=== PATIENT | female | born 1990 | race Caucasian/White ===

== ENCOUNTER 2016-10-24 08:40 | Emergency (ER) | payer MEDICAID ==
--- NOTE | 2016-10-24 09:22 | ER Document Report ---
ED Fall - General Chief Complaint: Fall Stated Complaint: FALL, FACIAL PAIN Time Seen by Provider: 10/24/16 09:13 Notes: The patient is a 26-year-old female who presents with left jaw pain and right sided headache after she said that she fell down 10 stairs last night and had 30 seconds of LOC. Patient says that she feels safe at home and that she is not being abused. She denies numbness, tingling, blurry vision, malocclusion, loose teeth, TRAVEL OUTSIDE OF THE [place] IN LAST 30 DAYS: No - Related data Allergies/Adverse Reactions: iodine [Iodine] Allergy (Verified 10/24/16 08:45) Past Medical History - General Information source: Patient - Social History Smoking Status: Current Every Day Smoker Frequency of alcohol use: Occasional Drug Abuse: Marijuana Family History: Reviewed & Not Pertinent Patient has suicidal ideation: No Patient has homicidal ideation: No Pulmonary Medical History: Reports: Hx Asthma Renal/ Medical History: Denies: Hx Peritoneal Dialysis GI Medical History: Reports: Hx Irritable Bowel Past Surgical History: Reports: Hx Cholecystectomy - Immunizations Hx Diphtheria, Pertussis, Tetanus Vaccination: Yes Review of Systems - Review of Systems Notes: REVIEW OF SYSTEMS: CONSTITUTIONAL: -fevers, -chills EENT: -eye pain, -difficulty swallowing, -nasal congestion, +left jaw pain CARDIOVASCULAR:-chest pain, -syncope. RESPIRATORY: -cough, -SOB GASTROINTESTINAL: -abdominal pain, - nausea, -vomiting, -diarrhea GENITOURINARY: -dysuria, -hematuria MUSCULOSKELETAL: -back pain, -neck pain SKIN: -rash or skin lesions. HEMATOLOGIC: -easy bruising or bleeding. LYMPHATIC: -swollen, enlarged glands. NEUROLOGICAL: -altered mental status or loss of consciousness, +headache, - neurologic symptoms PSYCHIATRIC: -anxiety, -depression. ALL OTHER SYSTEMS REVIEWED AND NEGATIVE. Physical Exam - Vital signs Vitals: Temp Pulse Resp BP Pulse Ox 98.4 F 84 18 118/55 L 99 10/24/16 08:41 10/24/16 08:41 10/24/16 08:41 10/24/16 08:41 10/24/16 08:41 - Notes Notes: PHYSICAL EXAMINATION: GENERAL: Well-appearing, well-nourished and in no acute distress. HEAD: Contusion over right parietal region. EYES: Pupils equal round and reactive to light, extraocular movements intact, sclera anicteric, conjunctiva are normal. ENT: nares patent, oropharynx clear without exudates. Moist mucous membranes. No malocclusion or dental injuries. NECK: Normal range of motion, supple without lymphadenopathy LUNGS: Breath sounds clear to auscultation bilaterally and equal. No wheezes rales or rhonchi. HEART: Regular rate and rhythm without murmurs ABDOMEN: Soft, nontender, normoactive bowel sounds. No guarding, no rebound. No masses appreciated. EXTREMITIES: Normal range of motion, no pitting or edema. No cyanosis. NEUROLOGICAL: Cranial nerves grossly intact. Normal speech, normal gait. Normal sensory and motor exams. PSYCH: Normal mood, normal affect. SKIN: Ecchymosis over left jaw. Course - Re-evaluation Re-evalutation: Asked patient multiple times if she felt safe at home and whether she was being abused, but she repeatedly denies this. Patient's head and facial CT do not show any bleeds or fractures. Instructed patient about contusion management with anti-inflammatories and ice packs and she understands. Given return precautions. - Vital Signs Vital signs: Temp Pulse Resp BP Pulse Ox 98.4 F 84 18 118/55 L 99 10/24/16 08:41 10/24/16 08:41 10/24/16 08:41 10/24/16 08:41 10/24/16 08:41 - Diagnostic Test Radiology reviewed: Image reviewed, Reports reviewed Radiology results interpreted by me: Head and facial CT: NAD Discharge - Discharge Clinical Impression: Facial contusion Qualifiers: Encounter type: initial encounter Qualified Code(s): S00.83XA - Contusion of other part of head, initial encounter Contusion of head Qualifiers: Encounter type: initial encounter Contusion of head detail: scalp Qualified Code(s): S00.03XA - Contusion of scalp, initial encounter Condition: Stable Disposition: HOME, SELF-CARE Additional Instructions: Take Tylenol and Motrin with ice packs for any pain. Contusion Your injury has resulted in a contusion -- a crushing of the deep tissues. No injury to important structures was detected during the physician's exam. Contusions vary in the amount of pain they cause, and in the length of time required for healing. Typically, the area will become bruised, and will remain painful to touch for two or three weeks. However, most patients are back to working and playing within a few days. After the initial period of rest and cold-packs, your symptoms (together with the doctor's recommendations) will determine how rapidly you can get back to full activity. Usually this means "do what feels okay, but don't do things that hurt." If re-examination was recommended, it's important to follow up as instructed. Call the doctor or return any time if pain increases, if swelling becomes severe, if you develop numbness or weakness in an injured extremity, or if any other alarming symptoms occur.
--- NOTE | 2016-10-24 10:00 | RADIOLOGY REPORT (SQ) ---
EXAM DESCRIPTION: CT HEAD WITHOUT COMPLETED DATE/TIME: 10/24/2016 9:39 am REASON FOR STUDY: fall COMPARISON: None. TECHNIQUE: Axial images acquired through the brain without intravenous contrast. Images reviewed wi th bone, brain and subdural windows. Images stored on PACS. All CT scanners at this facility use dose modulation, iterative reconstruction, and/or weight based d osing when appropriate to reduce radiation dose to as low as reasonably achievable (ALARA). [facility]: Dose Right [facility]: CareDose [facility]: Dose Right [facility]: Teradose 4D [facility]: [employer] RADIATION DOSE: Up-to-date CT equipment and radiation dose reduction techniques were employed. CTDIv ol: 64.6 mGy. DLP: 1034 mGy-cm. mGy. LIMITATIONS: None. FINDINGS: VENTRICLES: Normal size and contour. CEREBRUM: No masses. No hemorrhage. No midline shift. No evidence for acute infarction. Normal gra y/white matter differentiation. No areas of low density in the white matter. CEREBELLUM: No masses. No hemorrhage. No alteration of density. No evidence for acute infarction. EXTRAAXIAL SPACES: No fluid collections. No masses. ORBITS AND GLOBE: No intra- or extraconal masses. Normal contour of globe without masses. CALVARIUM: No fracture. PARANASAL SINUSES: No fluid or mucosal thickening. SOFT TISSUES: No mass or hematoma. OTHER: No other significant finding. IMPRESSION: NORMAL BRAIN CT WITHOUT CONTRAST. COMMENT: Quality ID # [id number]: Final reports with documentation of one or more dose reduction techniques (e.g., Automated exposure control, adjustment of the mA and/or kV according to patient size, use of iterative reconstruction technique) TECHNICAL DOCUMENTATION: JOB ID: [id number]- All Rights Reserved
--- NOTE | 2016-10-24 10:01 | RADIOLOGY REPORT (SQ) ---
EXAM DESCRIPTION: CT FACIAL AREA WITHOUT COMPLETED DATE/TIME: 10/24/2016 9:39 am REASON FOR STUDY: fall COMPARISON: None. TECHNIQUE: Noncontrasted images through the facial bones and orbits windowed for bone and soft tissu e. Additional coronal and sagittal reconstructed images reviewed. All images stored on PACS. All CT scanners at this facility use dose modulation, iterative reconstruction, and/or weight based d osing when appropriate to reduce radiation dose to as low as reasonably achievable (ALARA). [facility]: Dose Right [facility]: CareDose [facility]: Dose Right [facility]: Teradose 4D [facility]: [employer] RADIATION DOSE: Up-to-date CT equipment and radiation dose reduction techniques were employed. CTDIv ol: 30.4 mGy. DLP: 574 mGy-cm. mGy. LIMITATIONS: None. FINDINGS: FACIAL BONES: No fracture or bone lesion. ORBITS: Intact. No fracture. Symmetric intact globes and retroorbital soft tissues. PARANASAL SINUSES: Clear. No significant mucosal thickening, mass or fluid. No nasal polyps. Maxill dean sinus outlets are patent. SOFT TISSUES: There is subcutaneous edema involving the left cheek. INFERIOR BRAIN: Limited view. No acute findings. OTHER: No other significant finding. IMPRESSION: Soft tissue edema. No fractures. TECHNICAL DOCUMENTATION: JOB ID: [id number] Quality ID # [id number]: Final reports with documentation of one or more dose reduction techniques (e.g., Au tomated exposure control, adjustment of the mA and/or kV according to patient size, use of iterative reconstruction technique) 2010 [employer]- All Rights Reserved
[2016-10-24] MEDS ORDERED: NAPROXEN 250 MG TABLET PO ONE (10:15)
[2016-10-24 10:27] VITALS: BP 101/53
== END 2016-10-24 10:28 | disposition home or self-care (01) ==
LOC: ER 08:40
DX: S00.83XA Contusion of other part of head, initial encounter (principal); S00.03XA Contusion of scalp, initial encounter; W10.9XXA Fall (on) (from) unspecified stairs and steps, initial encounter; Y92.039 Unspecified place in apartment as the place of occurrence of the external cause; R55 Syncope and collapse; R68.84 Jaw pain; R51 Headache; J45.909 Unspecified asthma, uncomplicated; F17.200 Nicotine dependence, unspecified, uncomplicated
CPT/HCPCS: 99284; 70450; 70486; J3490

== ENCOUNTER 2017-07-04 10:14 | Emergency (ER) | payer MEDICAID ==
[2017-07-04 10:22] VITALS: BP 105/56
--- NOTE | 2017-07-04 10:43 | ER Document Report ---
ED Extremity Problem, Lower - General Chief Complaint: Knee Pain Stated Complaint: KNEE INJURY Time Seen by Provider: 07/04/17 10:31 Mode of Arrival: Wheelchair Information source: Patient Notes: 6-year-old female presents to ED for complaining of pain to her right knee and hip after she fell yesterday landing on her knee. She states she thought it was just sore but the pain has gotten worse this morning. States it is too painful to bear weight and she has shooting pain up to her hip and down to her foot. She does have bruises and swelling to the knee and hip TRAVEL OUTSIDE OF THE [place] IN LAST 30 DAYS: No - HPI Patient complains to provider of: Injury, Pain, Swelling Location: Hip, Knee Occurred: Yesterday Where: Home, Outdoors Onset/Duration: Gradual, Worse Quality of pain: Achy, Sharp Severity: Moderate Pain Level: 3 Context: Fell Recent injury: Yes Associated symptoms: Painful ambulation Exacerbated by: Hanging down, Movement, Walking Relieved by: Elevation, Ice, Rest - Related Data Allergies/Adverse Reactions: iodine [Iodine] Allergy (Verified 10/24/16 08:45) Past Medical History - General Information source: Patient Last Menstrual Period: 07/01/2017 - Social History Smoking Status: Current Every Day Smoker Cigarette use (# per day): Yes - Half pack a day Chew tobacco use (# tins/day): No Smoking Education Provided: Yes - 4 minutes Frequency of alcohol use: None Drug Abuse: None Occupation: None Lives with: Spouse/Significant other Family History: Reviewed & Not Pertinent Patient has suicidal ideation: No Patient has homicidal ideation: No - Past Medical History Cardiac Medical History: Reports: None Pulmonary Medical History: Reports: Hx Asthma EENT Medical History: Reports: None Neurological Medical History: Reports: None Endocrine Medical History: Reports: None Renal/ Medical History: Reports: None Malignancy Medical History: Reports: None GI Medical History: Reports: Hx Irritable Bowel Musculoskeltal Medical History: Reports Hx Musculoskeletal Deformity, Reports Hx Musculoskeletal Trauma Skin Medical History: Reports None Psychiatric Medical History: Reports: None Traumatic Medical History: Reports: Hx Fractures - Fractured finger Infectious Medical History: Reports: None Past Surgical History: Reports: Hx Cholecystectomy, Hx Oral Surgery - wisdom teeth - Immunizations Immunizations up to date: Yes Hx Diphtheria, Pertussis, Tetanus Vaccination: Yes Review of Systems - Review of Systems Constitutional: No symptoms reported EENT: No symptoms reported Cardiovascular: No symptoms reported Respiratory: No symptoms reported Gastrointestinal: No symptoms reported Genitourinary: No symptoms reported Female Genitourinary: No symptoms reported Musculoskeletal: Joint pain - Right hip and knee pain with swelling and bruising to the knee bruising to the hip, Muscle pain, Muscle stiffness Skin: No symptoms reported Hematologic/Lymphatic: No symptoms reported Neurological/Psychological: No symptoms reported -: Yes All other systems reviewed and negative Physical Exam - Vital signs Vitals: Temp Pulse Resp BP Pulse Ox 97.8 F 87 18 105/56 L 98 07/04/17 10:20 07/04/17 10:20 07/04/17 10:20 07/04/17 10:20 07/04/17 10:20 Interpretation: Normal - General General appearance: Appears well, Alert - HEENT Head: Normocephalic, Atraumatic Eyes: Normal Pupils: PERRL - Respiratory Respiratory status: No respiratory distress Chest status: Nontender Breath sounds: Normal Chest palpation: Normal - Cardiovascular Rhythm: Regular Heart sounds: Normal auscultation Murmur: No - Abdominal Inspection: Normal Distension: No distension Bowel sounds: Normal Tenderness: Nontender Organomegaly: No organomegaly - Back Back: Normal, Nontender - Extremities General upper extremity: Normal inspection, Nontender, Normal color, Normal ROM , Normal temperature General lower extremity: Normal color, Normal ROM, Normal weight bearing - With pain Hip: Tender, Ecchymosis, Pain with ROM. No: Abrasion, Dislocation, Instability , Laceration, Unable to bear weight Thigh: Tender, Ecchymosis Knee: Tender, Ecchymosis, Pain with ROM, Patellar tendon intact, Tender joint line. No: Abrasion, Deformity, Dislocation, Drawer's test instability, Instability, Joint effusion, Laceration, Laxity with valgus stress, Laxity with varus stress, Popliteal fossa tender, Unable to bear weight - Pain - Neurological Neuro grossly intact: Yes Cognition: Normal Orientation: AAOx4 [place] Coma Scale Eye Opening: Spontaneous Octaviano Coma Scale Verbal: Oriented Octaviano Coma Scale Motor: Obeys Commands [place] Coma Scale Total: 15 Speech: Normal Motor strength normal: LUE, RUE, LLE, RLE Sensory: Normal - Psychological Associated symptoms: Normal affect, Normal mood - Skin Skin Temperature: Warm Skin Moisture: Dry Skin Color: Normal Course - Re-evaluation Re-evalutation: 07/04/17 16:57 No bony deformities fractures or dislocations noted to the knee. There was some pain swelling. Patient was treated with Ras wrap to the knee and crutches. She was encouraged to elevate and ice the knee and use ibuprofen for pain. Patient to follow-up with the primary doctor and if pain continues to follow-up with orthopedic doctor. Patient teaching discussed with patient who verbalized understanding of instructions and agreement with treatment plan. - Vital Signs Vital signs: Temp Pulse Resp BP Pulse Ox 97.8 F 87 18 105/56 L 98 07/04/17 10:20 07/04/17 10:20 07/04/17 10:20 07/04/17 10:20 07/04/17 10:20 - Diagnostic Test Radiology reviewed: Image reviewed, Reports reviewed Procedures - Immobilization Right Knee Time completed: 11:38 Pre-Proc Neuro Vasc Exam: Normal Immobilizer type: Ras wrap, Crutches Performed by: PCT Post-Proc Neuro Vasc Exam: Normal Alignment checked and good: Yes Notes: 07/04/17 11:38 Patient states it feels much better with the Ras wrap. The patient is nontoxic appearing with stable vitals. They are afebrile. Knee exam shows no deformities with no obvious ligament instability. There is a normal pulse and sensation distally. There is no redness or signs of infection. X-rays show no acute fracture per the radiologist. Patient will be placed in an Ras wrap for comfort. Crutches will be offered and given if requested. Patient will be instructed to follow-up with not better in 1 week, sooner for increasing pain, fever, redness, numbness, tingling, weakness, any further concerns. Patient will be instructed to rest, ice, elevate their knee leg and ankle. Discharge - Discharge Clinical Impression: Fall Qualifiers: Encounter type: initial encounter Qualified Code(s): W19.XXXA - Unspecified fall, initial encounter Contusion of right knee Qualifiers: Encounter type: initial encounter Qualified Code(s): S80.01XA - Contusion of right knee, initial encounter Condition: Stable Disposition: HOME, SELF-CARE Instructions: Family Physicians / Practices Additional Instructions: Kidney Injury You have a kidney injury. The injury does not seem to be serious, and should heal by itself. Kidney injuries are treated with rest. The first 24 hours after the injury , bed rest is usually recommended. You should not play sports or do vigorous physical activity for a few days until all blood is cleared from the urine. The doctor will advise you when it's safe. Drink plenty of fluids (at least three quarts per day), unless the physician has advised you otherwise. This washes the blood away, lessening the risk of painful clots forming. You should return for further care if you develop lightheadedness, fever, increasingly severe flank pain, or inability to urinate. Knee Exercise Program It's important to strengthen the muscles around the knee. This protects the injured area and stabilizes a knee that's been loosened by ligament injury. EARLY - Even when motion of the knee is painful (even when wearing a splint ), you can begin isometric "quads" exercises. While sitting, hold the knee out, and contract the muscles to stiffen it. It shouldn't be straightened all the way -- stiffen it in a slightly-bent position. Lift the leg and draw a "T" with your foot, up to 100 times. When it becomes easy, add a weight on your foot. LATE - When the doctor advises you, you can begin moving the knee against resistance. The front muscles (quadriceps) are most important. While sitting at a [employer], straighten the knee forcefully while pushing a weight up with your ankle. Start with five to 10 pounds. Do 10 to 20 repetitions, increasing the weight as tolerated. Don't use more weight than is comfortable! Over a few weeks, work up to 35 to 50 pounds. Athletes should try to reach 70 to 90 pounds. RAS WRAP: A compression dressing (ras wrap) has been placed. This helps hold the area still. It limits swelling and internal bleeding. The wrap should be comfortably snug -- not tight. You should feel a sense of pressure, but not severe pain under the wrap. Unless the physician tells you otherwise, you can adjust the wrap for comfort. If the wrap causes symptoms suggesting it's too tight -- uncomfortable pressure, swelling or discoloration beyond the wrap, numbness, or severe pain - - you must loosen the wrap. If these symptoms don't resolve promptly, return for re-evaluation. USE OF CRUTCHES: The doctor has recommended that you not bear weight at this time. You will need to use crutches. Adjust the crutches so the tops come to about two inches under the armpit while you are standing upright. Use your hands -- not your armpits -- to support your weight. To get into a chair, support yourself with one crutch on the injured side. Hold the chair with the other hand, then lower yourself while putting all your weight on the good leg. Going up stairs is `good leg up, step up, then bring up crutches and bad leg.' Down stairs is `bad leg and crutches down, then bring good leg down.' If you develop numbness or swelling in an arm or hand, you are using the crutches incorrectly. Return if you are having any problems with the crutches. ICE & ELEVATION: Apply ice packs frequently against the painful area. Many different schedules are recommended, such as "20 minutes on, 20 minutes off" or "one hour ice, two hours rest." If you need to work, you may need to go longer between ice treatments. You should plan to have the area ice packed AT LEAST one- fourth of the time. The ice should be applied over the wrap, tape, or splint, or over a layer of cloth -- not directly against the skin. Some ice bags have a built-in cloth and can be put directly on the skin. Your injured part should be elevated as much as possible over the next 48 hours. Try to keep the injury above the level of the heart. Avoid use of the injured area. Elevation and rest will decrease the swelling. USE OF [id number] IBUPROFEN: Ibuprofen (Advil, Nuprin, Medipren, Motrin IB) is a medication for fever and pain control. In addition, it has anti- inflammatory effects which may be beneficial, especially in the treatment of injuries. It's best to take ibuprofen with food. Persons with ulcer disease or allergy to aspirin should notify their physician of this before taking ibuprofen. Ibuprofen can be given every four to six hours, for a total of four doses daily. Age Pain or fever dose Antiinflammatory dose 6-8 yr 200 mg (1 tab) 200 mg (1 tab) 9-11 yr 200 mg (1 tab) 200-400 mg (1-2 tab) 11-14 yr 200-400 mg (1-2 tab) 400 mg (2 tab) 15-adult 400 mg (2 tab) 600 mg (3 tab) FOLLOW-UP CARE: If you have been referred to a physician for follow-up care, call the physician s office for an appointment as you were instructed or within the next two days. If you experience worsening or a significant change in your symptoms, notify the physician immediately or return to the Emergency Department at any time for re-evaluation. Prescriptions: Ibuprofen 800 mg PO Q48HP PRN #20 tablet PRN Reason: Forms: Smoking Cessation Education Referrals: ANGELICA RO MD [ACTIVE STAFF] - Follow up as needed
--- NOTE | 2017-07-04 11:27 | RADIOLOGY REPORT (SQ) ---
EXAM DESCRIPTION: KNEE RIGHT 4 VIEWS COMPLETED DATE/TIME: 07/04/2017 11:13 am REASON FOR STUDY: fall pain swelling and bruising COMPARISON: None. NUMBER OF VIEWS: Four views. TECHNIQUE: AP, lateral, and both oblique radiographic images acquired of the right knee. LIMITATIONS: None. FINDINGS: MINERALIZATION: Normal. BONES: No acute fracture or dislocation. No worrisome bone lesions. JOINT: No effusion. SOFT TISSUES: No soft tissue swelling. No radio-opaque foreign body. OTHER: No other significant finding. IMPRESSION: NEGATIVE STUDY OF THE RIGHT KNEE. NO RADIOGRAPHIC EVIDENCE OF ACUTE INJURY. TECHNICAL DOCUMENTATION: JOB ID: [id number] [employer]- All Rights Reserved Reading location - IP/workstation name: [email or web address]
--- NOTE | 2017-07-04 11:27 | RADIOLOGY REPORT (SQ) ---
EXAM DESCRIPTION: HIP RIGHT AP/LATERAL COMPLETED DATE/TIME: 07/04/2017 11:13 am REASON FOR STUDY: fall pain swelling and bruising COMPARISON: None. NUMBER OF VIEWS: Two views. TECHNIQUE: AP pelvis and additional frog-leg view of the right hip. LIMITATIONS: None. FINDINGS: MINERALIZATION: Normal. RIGHT HIP: No fracture or dislocation. No worrisome bone lesions. LEFT HIP: No fracture or dislocation. No worrisome bone lesions. PUBIS AND ISCHIUM: No fracture. PELVIS: No fracture. SACRUM: No fracture or dislocation. No worrisome bone lesions. LOWER LUMBAR SPINE: No fracture or dislocation. No worrisome bone lesions. No significant disc disea se. SOFT TISSUES: IUD OTHER: No other significant finding. IMPRESSION: NEGATIVE STUDY OF THE RIGHT HIP. NO RADIOGRAPHIC EVIDENCE OF ACUTE INJURY. TECHNICAL DOCUMENTATION: JOB ID: [id number] [employer]- All Rights Reserved Reading location - IP/workstation name: [email or web address]
== END 2017-07-04 11:38 | disposition home or self-care (01) ==
LOC: ER 10:14
DX: S80.01XA Contusion of right knee, initial encounter (principal); S70.01XA Contusion of right hip, initial encounter; S70.10XA Contusion of unspecified thigh, initial encounter; M25.561 Pain in right knee; W19.XXXA Unspecified fall, initial encounter; Y92.009 Unspecified place in unspecified non-institutional (private) residence as the place of occurrence of the external cause; J45.909 Unspecified asthma, uncomplicated; F17.210 Nicotine dependence, cigarettes, uncomplicated; Z71.6 Tobacco abuse counseling
CPT/HCPCS: 99283

== ENCOUNTER 2017-09-12 12:06 | Emergency (ER) | payer MEDICAID ==
[2017-09-12 12:18] VITALS: BP 107/56
--- NOTE | 2017-09-12 12:55 | RADIOLOGY REPORT (SQ) ---
EXAM DESCRIPTION: HAND RIGHT 3 VIEWS COMPLETED DATE/TIME: 09/12/2017 12:47 pm REASON FOR STUDY: punched wall COMPARISON: None. EXAM PARAMETERS: NUMBER OF VIEWS: Three views. TECHNIQUE: AP, lateral and oblique radiographic images acquired of the right hand. LIMITATIONS: None. FINDINGS: MINERALIZATION: Normal. BONES: No acute fracture or dislocation. No worrisome bone lesions. JOINTS: No effusions. SOFT TISSUES: No soft tissue swelling. No foreign body. OTHER: No other significant finding. IMPRESSION: NORMAL RIGHT HAND. TECHNICAL DOCUMENTATION: JOB ID: [id number] 2010 [employer]- All Rights Reserved Reading location - IP/workstation name: [email or web address]
--- NOTE | 2017-09-12 13:04 | ER Document Report ---
ED Hand/Wrist Injury - General Chief Complaint: Hand Injury Stated Complaint: RIGHT HAND PAIN Time Seen by Provider: 09/12/17 12:34 Mode of Arrival: Ambulatory Information source: Patient Notes: Patient is an otherwise healthy 27-year-old female who reports right hand pain after she punched a wall accidentally. Patient reports that she was throwing a ball in the hallway with her children when she slipped and fell into the wall with her hand. TRAVEL OUTSIDE OF THE [place] IN LAST 30 DAYS: No - Related Data Allergies/Adverse Reactions: iodine [Iodine] Allergy (Verified 09/12/17 12:09) Past Medical History - General Information source: Patient - Social History Smoking Status: Current Every Day Smoker Chew tobacco use (# tins/day): No Frequency of alcohol use: Occasional Drug Abuse: Marijuana Family History: Reviewed & Not Pertinent Patient has suicidal ideation: No Patient has homicidal ideation: No Pulmonary Medical History: Reports: Hx Asthma Renal/ Medical History: Denies: Hx Peritoneal Dialysis GI Medical History: Reports: Hx Irritable Bowel Musculoskeletal Medical History: Reports Hx Musculoskeletal Deformity, Reports Hx Musculoskeletal Trauma Traumatic Medical History: Reports: Hx Fractures - Fractured finger Past Surgical History: Reports: Hx Cholecystectomy, Hx Oral Surgery - wisdom teeth - Immunizations Immunizations up to date: Yes Hx Diphtheria, Pertussis, Tetanus Vaccination: Yes Review of Systems - Review of Systems Constitutional: No symptoms reported EENT: No symptoms reported Cardiovascular: No symptoms reported Respiratory: No symptoms reported Gastrointestinal: No symptoms reported Genitourinary: No symptoms reported Female Genitourinary: No symptoms reported Musculoskeletal: See HPI Skin: No symptoms reported Hematologic/Lymphatic: No symptoms reported Neurological/Psychological: No symptoms reported Physical Exam - Vital signs Vitals: Temp Pulse Resp BP Pulse Ox 97.7 F 79 16 107/56 L 100 09/12/17 12:17 09/12/17 12:17 09/12/17 12:17 09/12/17 12:17 09/12/17 12:17 - Notes Notes: PHYSICAL EXAMINATION: GENERAL: Well-appearing, well-nourished and in no acute distress. HEAD: Atraumatic, normocephalic. EYES: Pupils equal round and reactive to light, extraocular movements intact, conjunctiva are normal. ENT: Nares patent, oropharynx clear without exudates. Moist mucous membranes. NECK: Normal range of motion, supple without lymphadenopathy LUNGS: Breath sounds clear to auscultation bilaterally and equal. No wheezes rales or rhonchi. HEART: Regular rate and rhythm without murmurs Musculoskeletal: Normal range of motion, no pitting or edema. No cyanosis. Tenderness to palpation to dorsal surface of hand extending into the third fourth and fifth digits. No snuffbox tenderness. Cap refill less than 3 seconds, motor and sensation distal to injury are normal. NEUROLOGICAL: Cranial nerves grossly intact. Normal speech, normal gait. Normal sensory, motor exams PSYCH: Normal mood, normal affect. SKIN: Warm, Dry, normal turgor, no rashes or lesions noted. Course - Re-evaluation Re-evalutation: X-ray negative for any fractures or dislocations. Patient will be placed in a cockup splint for comfort. Patient will be instructed to take ibuprofen as needed for the pain. - Vital Signs Vital signs: Temp Pulse Resp BP Pulse Ox 97.7 F 79 16 107/56 L 100 09/12/17 12:17 09/12/17 12:17 09/12/17 12:17 09/12/17 12:17 09/12/17 12:17 Discharge - Discharge Clinical Impression: Sprain of hand, right Qualifiers: Encounter type: initial encounter Qualified Code(s): S63.91XA - Sprain of unspecified part of right wrist and hand, initial encounter Condition: Stable Disposition: HOME, SELF-CARE Additional Instructions: Sprain Your injury is a sprain. A sprain results from stretching or tearing of the ligaments, usually from a twisting injury. The ligaments will require time and protection in order to heal properly. Many sprains are quite disabling and should be taken seriously. The usual initial treatment of sprains is cold packs, elevation, and rest of the injured area. Your physician has assessed the seriousness of your ligament injury, and has outlined a treatment plan. Understand that this treatment may change, depending on how you progress. If a re-examination was recommended, it is important that you follow up as instructed. Call the doctor any time if there is severe pain, numbness, or loss of function in the injured area. Ice Packs Apply ice packs frequently against the painful area. Many different schedules are recommended, such as "20 minutes on, 20 minutes off" or "one hour ice, two hours rest." If you need to work, you may need to go longer between ice treatments. You should plan to have the area ice packed AT LEAST one fourth of the time. The ice should be applied over the wrap, tape, or splint, or over a layer of cloth -- not directly against the skin. Some ice bags have a built-in cloth and can be put directly on the skin. Wear the splint for support as needed. Take ibuprofen 600 mg every 6 hours to help reduce inflammation. Use ice to the area as directed above and elevate the extremity as much as possible above the level of your heart. Referrals: [facility] [Provider Group] - Follow up as needed
== END 2017-09-12 13:23 | disposition home or self-care (01) ==
LOC: ER 12:06
DX: S63.91XA Sprain of unspecified part of right wrist and hand, initial encounter (principal); W22.09XA Striking against other stationary object, initial encounter; Y92.008 Other place in unspecified non-institutional (private) residence as the place of occurrence of the external cause; F17.200 Nicotine dependence, unspecified, uncomplicated; Z90.49 Acquired absence of other specified parts of digestive tract
CPT/HCPCS: 99283; 73130; L3908 ×2

== ENCOUNTER 2017-11-25 17:31 | Emergency (ER) | payer MEDICAID ==
[2017-11-25 17:36] VITALS: BP 112/52
[2017-11-25] MEDS ORDERED: LACTULOSE SYRUP 20 GM/30 ML UDCUP PR ONE (17:51)
--- NOTE | 2017-11-25 17:56 | ER Document Report ---
ED GI/ - General Chief Complaint: Constipation Stated Complaint: ABDOMINAL PAIN Time Seen by Provider: 11/25/17 17:50 Mode of Arrival: Ambulatory Information source: Patient Notes: Chief complaint: Constipation History of complain:( obtained from----patient) 27 years old female presents today with no bowel movement for 10 days, vomited once with fecal material. No abdominal pain or cramps no fever chills or other constitutional symptoms. Onset: As above Duration: 10 days Severity: Mild to moderate Quality: Cramp Context: As above Exacerbating factor and relieving factors: REVIEW OF SYSTEMS: CONSTITUTIONAL : Denies fever, chills, or sweats. Denies recent illness. EENT: Denies eye, ear, throat, or mouth pain or symptoms. Denies nasal or sinus congestion or discharge. Denies throat, tongue, or mouth swelling or difficulty swallowing. CARDIOVASCULAR: Denies chest pain. Denies palpitations or racing or irregular heart beat. Denies ankle edema. RESPIRATORY: Denies cough, cold, or chest congestion. Denies shortness of breath, difficulty breathing, or wheezing. GASTROINTESTINAL: Denies distention. Denies nausea, vomiting, or diarrhea. Denies blood in vomitus, stools, or per rectum. Denies black, tarry stools. Denies constipation. GENITOURINARY: Denies difficulty urinating, painful urination, burning, frequency, blood in urine, or discharge. FEMALE GENITOURINARY: Denies vaginal bleeding, heavy or abnormal periods, irregular periods. Denies vaginal discharge or odor. MUSCULOSKELETAL: Denies back or neck pain or stiffness. Denies joint pain or swelling. SKIN: Denies rash, lesions or sores. HEMATOLOGIC : Denies easy bruising or bleeding. LYMPHATIC: Denies swollen, enlarged glands. NEUROLOGICAL: Denies confusion or altered mental status. Denies passing out or loss of consciousness. Denies dizziness or lightheadedness. Denies headache. Denies weakness or paralysis or loss of use of either side. Denies problems with gait or speech. Denies sensory loss, numbness, or tingling. Denies seizures. PSYCHIATRIC: Denies anxiety or stress. Denies depression, suicidal ideation, or homicidal ideation. ALL OTHER SYSTEMS REVIEWED AND NEGATIVE. PHYSICAL EXAMINATION: GENERAL: Well-appearing, well-nourished and in no acute distress. HEAD: Atraumatic, normocephalic. EYES: Pupils equal round and reactive to light, extraocular movements intact, conjunctiva are normal. ENT: Nares patent, oropharynx clear without exudates. Moist mucous membranes. NECK: Normal range of motion, supple without lymphadenopathy LUNGS: Breath sounds clear to auscultation bilaterally and equal. No wheezes rales or rhonchi. HEART: Regular rate and rhythm without murmurs ABDOMEN: Soft, nontender, nondistended abdomen. No guarding, no rebound. No masses appreciated. Examination of genitals-deferred Musculoskeletal: Normal range of motion, no pitting or edema. No cyanosis. NEUROLOGICAL: Cranial nerves grossly intact. Normal speech, normal gait. Normal sensory, motor exams PSYCH: Normal mood, normal affect. SKIN: Warm, Dry, normal turgor, no rashes or lesions noted. Dictation was performed using [employer] voice recognition software TRAVEL OUTSIDE OF THE [place] IN LAST 30 DAYS: No - HPI Notes: 11/25/17 17:54 Dictated - Related Data Allergies/Adverse Reactions: iodine [Iodine] Allergy (Verified 11/25/17 17:32) Past Medical History - Social History Smoking Status: Current Every Day Smoker Chew tobacco use (# tins/day): No Frequency of alcohol use: None Drug Abuse: None Lives with: Family Family History: Reviewed & Not Pertinent Patient has suicidal ideation: No Patient has homicidal ideation: No Pulmonary Medical History: Reports: Hx Asthma Renal/ Medical History: Denies: Hx Peritoneal Dialysis GI Medical History: Reports: Hx Irritable Bowel Musculoskeletal Medical History: Reports Hx Musculoskeletal Deformity, Reports Hx Musculoskeletal Trauma Traumatic Medical History: Reports: Hx Fractures - Fractured finger Past Surgical History: Reports: Hx Cholecystectomy, Hx Oral Surgery - wisdom teeth - Immunizations Immunizations up to date: Yes Hx Diphtheria, Pertussis, Tetanus Vaccination: Yes Review of Systems - Review of Systems Notes: Dictated Physical Exam - Vital signs Vitals: Temp Pulse Resp BP Pulse Ox 97.8 F 78 16 112/52 L 100 11/25/17 17:36 11/25/17 17:36 11/25/17 17:36 11/25/17 17:36 11/25/17 17:36 - Notes Notes: Dictated Course - Re-evaluation Re-evalutation: 11/25/17 17:54 Lactulose enema given - Vital Signs Vital signs: Temp Pulse Resp BP Pulse Ox 97.8 F 78 16 112/52 L 100 11/25/17 17:36 11/25/17 17:36 11/25/17 17:36 11/25/17 17:36 11/25/17 17:36 Discharge - Discharge Clinical Impression: Constipation by delayed colonic transit Condition: Fair Disposition: HOME, SELF-CARE Instructions: Constipation ([facility]) Additional Instructions: Constipation Constipation is a common problem. It is especially likely as you get older. Constipation is a common cause of abdominal pain, but sometimes causes no symptoms at all. Causes of constipation include certain medications, dehydration, diets, inactivity, and low-fiber intake. Rarely, it can be a symptom of underlying disease. The physician has evaluated you for this. Avoid constipation by eating a diet high in fiber, fruits, and vegetables. Drink plenty of liquids. Get regular exercise. If possible, avoid constipating medicines like narcotic pain medication. Some vitamin tablets can cause constipation. Stool softeners may be needed for difficult cases. An excellent stool softener is Konsyl which is available at [facility] [employer]. Just add a teaspoon to a glass of pineapple or orange juice daily or twice a day if needed. Laxatives are useful for occasional constipation. You should use them only when necessary. Too-frequent use can make your bowels dependent on them. Some over the counter laxatives available without prescription are: Milk of Magnesia, 1-2 tablespoons twice a day Dulcolax, 5 mg pill or 10 mg suppository. Citrate of Magnesia, 4-5 ounces a day for a day or two For acute constipation, Fleet's Enemas and Dulcolax suppositories are helpful. Chronic, long term care pharmacist use of laxatives or enemas is not a good idea. Your bowel may become dependant on them. You do not need to have a bowel movement every day. Many people do fine with a bowel movement every three or four days. You should call your doctor or return for re-evaluation if you pass blood in the stool, or if you develop fever or increasing abdominal pain. Prescriptions: Lactulose 20 gm PO BID #120 ml
== END 2017-11-25 19:20 | disposition home or self-care (01) ==
LOC: ER 17:31
DX: K59.01 Slow transit constipation (principal); R11.13 Vomiting of fecal matter; F17.200 Nicotine dependence, unspecified, uncomplicated; J45.909 Unspecified asthma, uncomplicated; Z87.19 Personal history of other diseases of the digestive system; Z90.49 Acquired absence of other specified parts of digestive tract
CPT/HCPCS: 99283; J3490

== ENCOUNTER 2017-11-26 08:19 | Emergency (ER) | payer MEDICAID ==
--- NOTE | 2017-11-26 08:22 | ER Document Report ---
ED GI/ - General Chief Complaint: Abdominal Pain Stated Complaint: ABDOMINAL PAIN Time Seen by Provider: 11/26/17 08:22 Mode of Arrival: Ambulatory Information source: Patient Notes: 27-year-old female complaining of crampy abdominal pain causing her to bend over from the waist. She was treated for constipation for 10 days with an enema in the emergency department yesterday and only had small amount of flat bowel movement. TRAVEL OUTSIDE OF THE [place] IN LAST 30 DAYS: No - Related Data Allergies/Adverse Reactions: iodine [Iodine] Allergy (Verified 11/26/17 08:20) Past Medical History - General Information source: Patient - Social History Smoking Status: Unknown if Ever Smoked Occupation: [employer] Lives with: Family Family History: Reviewed & Not Pertinent Pulmonary Medical History: Reports: Hx Asthma Renal/ Medical History: Denies: Hx Peritoneal Dialysis GI Medical History: Reports: Hx Irritable Bowel Musculoskeletal Medical History: Reports Hx Musculoskeletal Deformity, Reports Hx Musculoskeletal Trauma Traumatic Medical History: Reports: Hx Fractures - Fractured finger Past Surgical History: Reports: Hx Cholecystectomy, Hx Oral Surgery - wisdom teeth - Immunizations Immunizations up to date: Yes Hx Diphtheria, Pertussis, Tetanus Vaccination: Yes Review of Systems - Review of Systems Constitutional: No symptoms reported EENT: No symptoms reported Cardiovascular: No symptoms reported Respiratory: No symptoms reported Gastrointestinal: See HPI Genitourinary: No symptoms reported Female Genitourinary: No symptoms reported Musculoskeletal: No symptoms reported Skin: No symptoms reported Hematologic/Lymphatic: No symptoms reported Neurological/Psychological: No symptoms reported Physical Exam - Vital signs Vitals: Temp Pulse BP Pulse Ox 97.6 F 74 114/51 L 100 11/26/17 08:24 11/26/17 08:24 11/26/17 08:24 11/26/17 08:24 Interpretation: Normal - General General appearance: Appears well, Alert - HEENT Head: Normocephalic, Atraumatic Eyes: Normal Conjunctiva: Normal Pupils: PERRL Mucous membranes: Normal Neck: Supple. No: Lymphadenopathy - Respiratory Respiratory status: No respiratory distress Chest status: Nontender Breath sounds: Normal Chest palpation: Normal - Cardiovascular Rhythm: Regular Heart sounds: Normal auscultation Murmur: No - Abdominal Inspection: Normal Distension: No distension Bowel sounds: Normal Tenderness: Tender - mild upper abdomen. No: McBurney's point, Gomez's sign, Guarding, Rebound Organomegaly: No organomegaly - Back Back: Normal, Nontender. No: CVA tenderness - Extremities General upper extremity: Normal inspection, Nontender, Normal color, Normal ROM , Normal temperature General lower extremity: Normal inspection, Nontender, Normal color, Normal ROM , Normal temperature, Normal weight bearing. No: Mara's sign - Neurological Neuro grossly intact: Yes Cognition: Normal Orientation: AAOx4 Garner Coma Scale Eye Opening: Spontaneous Garner Coma Scale Verbal: Oriented Garner Coma Scale Motor: Obeys Commands Garner Coma Scale Total: 15 Speech: Normal Motor strength normal: LUE, RUE, LLE, RLE Sensory: Normal - Psychological Associated symptoms: Normal affect, Normal mood - Skin Skin Temperature: Warm Skin Moisture: Dry Skin Color: Normal Skin irregularity: negative: Rash Course - Re-evaluation Re-evalutation: 11/26/17 11:32 Acute abdominal x-ray is negative, the white blood cell count is 11 without a shift, the chemistry is normal, the urinalysis does not show urinary tract infection. After the IV fluid she has no abdominal pain or tenderness. - Vital Signs Vital signs: Temp Pulse Resp BP Pulse Ox 97.6 F 66 103/49 L 97 11/26/17 08:24 11/26/17 11:39 11/26/17 11:39 11/26/17 11:39 - Laboratory Result Diagrams: 11/26/17 08:40 11/26/17 10:06 Laboratory results interpreted by me: 11/26/17 11/26/17 11/26/17 08:40 08:40 10:06 WBC 11.2 H RBC 5.53 H Hgb 16.5 H Hct 48.5 H BUN 5 L Glucose 74 L Ur Leukocyte Esterase LARGE H Discharge - Discharge Clinical Impression: Resolved abdominal pain Condition: Good Disposition: HOME, SELF-CARE Instructions: Abdominal Pain ([facility]) Additional Instructions: Return to the emergency room if symptoms worsen Copy of lab work and imaging study given to you See your doctor for follow-up Forms: Return to Work
[2017-11-26 09:02] LABS: ABSOLUTE EOSINOPHILS # (AUTO) 0.3 10^3/uL (0.0-0.6); ABSOLUTE LYMPHOCYTES (AUTO) 2.8 10^3/uL (0.5-4.7); ABSOLUTE MONOCYTES (AUTO) 1.1 10^3/uL (0.1-1.4); ABSOLUTE NEUT (AUTO) 6.9 10^3/uL (1.7-8.2); BASOPHILS % (AUTO) 0.4 % (0-2); EOSINOPHILS % (AUTO) 2.7 % (0-6); HEMATOCRIT 48.5 % (36.0-47.0); HEMOGLOBIN 16.5 g/dL (12.0-15.5); LYMPHOCYTES % (AUTO) 24.7 % (13-45); MEAN CORPUSCULAR HEMOGLOBIN 29.8 pg (27.0-33.4); MEAN CORPUSCULAR VOLUME 88 fl (80-97); MONOCYTES % (AUTO) 10.1 % (3-13); PLATELET COUNT 296 10^3/uL (150-450); RED BLOOD COUNT 5.53 10^6/uL (3.72-5.28); RED CELL DISTRIBUTION WIDTH 13.2 % (11.5-14.0); SEGMENTED NEUTROPHILS % (AUTO) 62.1 % (42-78); TOTAL CELLS COUNTED % (AUTO) 100 %; WHITE BLOOD COUNT 11.2 10^3/uL (4.0-10.5)
[2017-11-26 09:14] LABS: APPEARANCE,URINE SLIGHTLY-CLOUDY; BILIRUBIN,URINE NEGATIVE (NEGATIVE); COLOR,URINE STRAW; GLUCOSE, URINE NEGATIVE (NEGATIVE); KETONES,URINE NEGATIVE (NEGATIVE); LEUKOCYTE ESTERASE,URINE LARGE (NEGATIVE); NITRITE,URINE NEGATIVE (NEGATIVE); PROTEIN,URINE NEGATIVE (NEGATIVE); URINE SPECIFIC GRAVITY 1.004; UROBILINOGEN,URINE NEGATIVE mg/dL (<2.0)
[2017-11-26] MEDS ORDERED: RINGERS SOLUTION,LACTATED 1,000 ML IV ONE (10:20)
[2017-11-26 10:36] LABS: ALANINE AMINOTRANSFERASE 25 U/L (9-52); ALBUMIN 4.1 g/dL (3.5-5.0); ALKALINE PHOSPHATASE 72 U/L (38-126); ANION GAP 10 (5-19); ASPARTATE AMINO TRANSFERASE 25 U/L (14-36); BILIRUBIN,DIRECT 0.3 mg/dL (0.0-0.4); BILIRUBIN,TOTAL 0.7 mg/dL (0.2-1.3); BLOOD UREA NITROGEN 5 mg/dL (7-20); CALCIUM 9.5 mg/dL (8.4-10.2); CARBON DIOXIDE 25 mmol/L (22-30); CHLORIDE 105 mmol/L (98-107); GLUCOSE 74 mg/dL (75-110); LIPASE 88.2 U/L (23-300); POTASSIUM 4.4 mmol/L (3.6-5.0); SODIUM 139.7 mmol/L (137-145); TOTAL PROTEIN 7.2 g/dL (6.3-8.2)
--- NOTE | 2017-11-26 10:37 | RADIOLOGY REPORT (SQ) ---
EXAM DESCRIPTION: ACUTE ABDOMEN SERIES COMPLETED DATE/TIME: 11/26/2017 10:26 am REASON FOR STUDY: abd pain constipation COMPARISON: August 2008 NUMBER OF VIEWS: Three views. TECHNIQUE: Frontal chest, supine abdomen and upright/decubitus abdomen radiographic images acquired. LIMITATIONS: None. FINDINGS: CHEST: Lungs clear of infiltrates. FREE AIR: None. No abnormal gas collections. BOWEL GAS PATTERN: Nonobstructive pattern. No dilated loops or air fluid levels. CALCIFICATIONS: No suspicious calcifications. HARDWARE: Surgical clips are identified in the right upper quadrant. IUD is projected in the mid pel vis. SOFT TISSUES: No gross mass or suggestion of organomegaly. BONES: No acute fracture. No worrisome bone lesions. OTHER: No other significant finding. IMPRESSION: NO RADIOGRAPHIC EVIDENCE FOR ACUTE ABDOMINAL DISEASE. TECHNICAL DOCUMENTATION: JOB ID: [id number] [employer]- All Rights Reserved Reading location - IP/workstation name: [email or web address]
[2017-11-26 11:42] VITALS: BP 103/49
== END 2017-11-26 11:42 | disposition home or self-care (01) ==
LOC: ER 08:19
DX: R10.9 Unspecified abdominal pain (principal); Z90.49 Acquired absence of other specified parts of digestive tract
CPT/HCPCS: 99284; 96360; 36415; 87086; 83690; 85025; 81025; 80053; 81001; 74022; J7120

== ENCOUNTER 2018-04-19 10:59 | Emergency (ER) | payer SELFPAY ==
[2018-04-19 11:08] VITALS: BP 106/85
== END 2018-04-19 13:30 | disposition left against medical advice (07) ==
LOC: ER 10:59
DX: Z53.21 Procedure and treatment not carried out due to patient leaving prior to being seen by health care provider (principal)

== ENCOUNTER 2018-04-20 09:30 | Emergency (ER) | payer SELFPAY ==
--- NOTE | 2018-04-20 09:44 | ER Document Report ---
ED Medical Screen (RME) - General Chief Complaint: Vaginal Discharge Stated Complaint: VAGINAL ISSUES Time Seen by Provider: 04/20/18 09:37 Notes: 27 years old female with IUD, presents with vaginal discharge and lower abdominal discomfort as well as dysuria and frequency for the last 3 days. No fever chills or other constitutional symptoms. TRAVEL OUTSIDE OF THE [place] IN LAST 30 DAYS: No - Related Data Allergies/Adverse Reactions: iodine [Iodine] Allergy (Verified 04/20/18 09:32) Past Medical History - Social History Chew tobacco use (# tins/day): No Frequency of alcohol use: None Drug Abuse: None Pulmonary Medical History: Reports: Hx Asthma Renal/ Medical History: Denies: Hx Peritoneal Dialysis GI Medical History: Reports: Hx Irritable Bowel Musculoskeltal Medical History: Reports Hx Musculoskeletal Deformity, Reports Hx Musculoskeletal Trauma Traumatic Medical History: Reports: Hx Fractures - Fractured finger Past Surgical History: Reports: Hx Cholecystectomy, Hx Oral Surgery - wisdom teeth - Immunizations Immunizations up to date: Yes Hx Diphtheria, Pertussis, Tetanus Vaccination: Yes Physical Exam - Vital signs Vitals: Resp 16 04/20/18 09:36 Course - Vital Signs Vital signs: Temp Pulse Resp BP Pulse Ox 16 04/20/18 09:36
[2018-04-20 10:15] LABS: ABSOLUTE BASOPHILS # (AUTO) 0.1 10^3/uL (0.0-0.2); ABSOLUTE EOSINOPHILS # (AUTO) 0.2 10^3/uL (0.0-0.6); ABSOLUTE LYMPHOCYTES (AUTO) 2.8 10^3/uL (0.5-4.7); ABSOLUTE MONOCYTES (AUTO) 0.8 10^3/uL (0.1-1.4); ABSOLUTE NEUT (AUTO) 5.1 10^3/uL (1.7-8.2); BASOPHILS % (AUTO) 0.9 % (0-2); EOSINOPHILS % (AUTO) 2.3 % (0-6); HEMATOCRIT 42.8 % (36.0-47.0); HEMOGLOBIN 14.5 g/dL (12.0-15.5); LYMPHOCYTES % (AUTO) 31.2 % (13-45); MEAN CORPUSCULAR HEMOGLOBIN 30.3 pg (27.0-33.4); MEAN CORPUSCULAR HGB CONC 33.9 g/dL (32.0-36.0); MEAN CORPUSCULAR VOLUME 89 fl (80-97); MONOCYTES % (AUTO) 8.8 % (3-13); PLATELET COUNT 271 10^3/uL (150-450); RED CELL DISTRIBUTION WIDTH 12.7 % (11.5-14.0); SEGMENTED NEUTROPHILS % (AUTO) 56.8 % (42-78); TOTAL CELLS COUNTED % (AUTO) 100 %
[2018-04-20] MEDS ORDERED: FLUCONAZOLE 100 MG TABLET PO ONE (10:35)
--- NOTE | 2018-04-20 10:38 | ER Document Report ---
ED General - General Chief Complaint: Vaginal Discharge Stated Complaint: VAGINAL ISSUES Time Seen by Provider: 04/20/18 09:37 Mode of Arrival: Ambulatory Information source: Patient Notes: 27-year-old with asthma, IBS presents with complaint of vaginal discomfort, itching, vaginal discharge that started 2 days prior to arrival. Patient states she has had white clumpy discharge which slowly progressed to a greenish discharge. Patient has mild suprapubic abdominal discomfort. She is sexually active with one partner does not use condoms but has a Mirena. She denies any fever, chills, nausea, vomiting. Patient reports a history of PID but denies any history of gonorrhea and chlamydia. She states that she allowed a UTI to go untreated for too long and was diagnosed with PID. TRAVEL OUTSIDE OF THE [place] IN LAST 30 DAYS: No - HPI Onset: Other Onset/Duration: Gradual, Persistent Quality of pain: Burning, Throbbing Severity: Moderate Pain Level: 2 Associated symptoms: denies: Chest pain, Nonproductive cough, Productive cough, Fever, Headache, Nausea, Vomiting, Shortness of breath Exacerbated by: Sitting Relieved by: Denies Similar symptoms previously: Yes Recently seen / treated by doctor: No - Related Data Allergies/Adverse Reactions: iodine [Iodine] Allergy (Verified 04/20/18 09:32) Past Medical History - General Information source: Patient, [facility] Records - Social History Smoking Status: Never Smoker Chew tobacco use (# tins/day): No Frequency of alcohol use: None Drug Abuse: None Lives with: Family Family History: Reviewed & Not Pertinent Patient has suicidal ideation: No Patient has homicidal ideation: No Pulmonary Medical History: Reports: Hx Asthma Renal/ Medical History: Denies: Hx Peritoneal Dialysis GI Medical History: Reports: Hx Irritable Bowel Musculoskeletal Medical History: Reports Hx Musculoskeletal Deformity, Reports Hx Musculoskeletal Trauma Traumatic Medical History: Reports: Hx Fractures - Fractured finger Past Surgical History: Reports: Hx Cholecystectomy, Hx Oral Surgery - wisdom teeth - Immunizations Immunizations up to date: Yes Hx Diphtheria, Pertussis, Tetanus Vaccination: Yes Review of Systems - Review of Systems Notes: REVIEW OF SYSTEMS: CONSTITUTIONAL : Denies fever, chills, or sweats. Denies recent illness. Denies weight loss, recent hospitalizations. EENT: Denies visual changes, eye pain. Denies sore throat, oral lesions, difficulty swallowing. CARDIOVASCULAR: Denies chest pain. Denies palpitations. Denies lower extremity edema. RESPIRATORY: Denies cough. Denies shortness of breath, wheezing. GASTROINTESTINAL: Denies abdominal distention. Denies nausea, vomiting, or diarrhea. Denies blood in vomitus, stools, or per rectum. Denies black, tarry stools. Denies constipation. GENITOURINARY: Denies difficulty urinating, painful urination, frequency, blood in urine, MUSCULOSKELETAL: Denies back or neck pain or stiffness. Denies joint pain or swelling. SKIN: Denies rash, lesions or sores. HEMATOLOGIC : Denies easy bruising or bleeding. LYMPHATIC: Denies swollen glands. NEUROLOGICAL: Denies confusion or altered mental status. Denies loss of consciousness. Denies dizziness or lightheadedness. Denies headache. Denies weakness or paralysis. Denies problems difficulty with ambulation, slurred speech. Denies sensory loss, numbness, or tingling. Denies seizures. PSYCHIATRIC: Denies anxiety or stress. Denies depression, suicidal ideation, or homicidal ideation. Denies visual or auditory hallucinations. Physical Exam - Vital signs Vitals: Resp 16 04/20/18 09:36 - Notes Notes: PHYSICAL EXAMINATION: GENERAL: Well-appearing, well-nourished and in no acute distress. HEAD: Atraumatic, normocephalic. EYES: Pupils equal round and reactive to light, extraocular movements intact, conjunctiva are normal. ENT: Nares patent, oropharynx clear without exudates. Moist mucous membranes. NECK: Normal range of motion, supple without lymphadenopathy LUNGS: Breath sounds clear to auscultation bilaterally and equal. No wheezes rales or rhonchi. HEART: Regular rate and rhythm without murmurs ABDOMEN: Soft, nontender, nondistended abdomen. No guarding, no rebound. No masses appreciated. Female : Pelvic exam; External genitalia erythematous, beefy, swollen, tender. Speculum exam with white thick discharge. Vaginal wall unremarkable. Os closed. No cervical motion tenderness. No adnexal tenderness or masses appreciated. Swabs obtained for gonorrhea, chlamydia and wet prep. Musculoskeletal: Normal range of motion, no pitting or edema. No cyanosis. NEUROLOGICAL: Cranial nerves grossly intact. Normal speech, normal gait. Normal sensory, motor exams PSYCH: Normal mood, normal affect. SKIN: Warm, Dry, normal turgor, no rashes or lesions noted. Course - Re-evaluation Re-evalutation: Temp Pulse Resp BP Pulse Ox 30 L 16 103/54 L 100 04/20/18 09:44 04/20/18 09:44 04/20/18 09:44 04/20/18 09:44 Temp Pulse Resp BP Pulse Ox 98.4 F 70 18 102/46 L 100 04/20/18 10:30 04/20/18 10:30 04/20/18 10:30 04/20/18 10:30 04/20/18 10:30 Laboratory 04/20/18 04/20/18 04/20/18 09:55 09:55 09:55 WBC 9.0 RBC 4.80 Hgb 14.5 Hct 42.8 MCV 89 MCH 30.3 MCHC 33.9 RDW 12.7 Plt Count 271 Seg Neutrophils % 56.8 Lymphocytes % 31.2 Monocytes % 8.8 Eosinophils % 2.3 Basophils % 0.9 Absolute Neutrophils 5.1 Absolute Lymphocytes 2.8 Absolute Monocytes 0.8 Absolute Eosinophils 0.2 Absolute Basophils 0.1 Urine Color YELLOW Urine Appearance CLOUDY Urine pH 5.0 Ur Specific [place] 1.020 Urine Protein NEGATIVE Urine Glucose (UA) NEGATIVE Urine Ketones NEGATIVE Urine Blood NEGATIVE Urine Nitrite NEGATIVE Urine Bilirubin NEGATIVE Urine Urobilinogen NEGATIVE Ur Leukocyte Esterase LARGE H Urine WBC (Auto) 3 Urine Bacteria (Auto) 1+ Squamous Epi Cells Auto 4 Urine Mucus (Auto) OCC Urine Yeast (Budding) PRESENT Urine Ascorbic Acid NEGATIVE Urine HCG, Qual NEGATIVE Trichomonas (Wet Prep) Vaginal WBC Vaginal RBC Vaginal Yeast Chlamydia DNA (PCR) N.gonorrhoeae DNA (PCR) 04/20/18 04/20/18 10:30 10:30 WBC RBC Hgb Hct MCV MCH MCHC RDW Plt Count Seg Neutrophils % Lymphocytes % Monocytes % Eosinophils % Basophils % Absolute Neutrophils Absolute Lymphocytes Absolute Monocytes Absolute Eosinophils Absolute Basophils Urine Color Urine Appearance Urine pH Ur Specific [place] Urine Protein Urine Glucose (UA) Urine Ketones Urine Blood Urine Nitrite Urine Bilirubin Urine Urobilinogen Ur Leukocyte Esterase Urine WBC (Auto) Urine Bacteria (Auto) Squamous Epi Cells Auto Urine Mucus (Auto) Urine Yeast (Budding) Urine Ascorbic Acid Urine HCG, Qual Trichomonas (Wet Prep) NO TRICHOMONAS SEEN Vaginal WBC 1+ WBCS SEEN Vaginal RBC 3+ RBCS SEEN Vaginal Yeast YEAST SEEN Chlamydia DNA (PCR) NOT DETECTED N.gonorrhoeae DNA (PCR) NOT DETECTED 04/20/18 10:48 27-year-old female presents with complaint of 2 days of vaginal discharge, vaginal discomfort. Initial vital signs are abnormal and documented as a pulse of 30. Repeat vital signs were performed and patient has a pulse of 70 is afebrile. Exam consistent with vaginitis. Yeast seen on wet prep. Gonorrhea and chlamydia negative. Patient was treated with Diflucan, topical clotrimazole. Patient was evaluated and treated as appropriate for the patient's presenting symptoms and complaint, with consideration of any critical or life threatening conditions that may be associated with their obtained history and exam as noted above. All results were discussed with patient. Patient provided the opportunity to ask questions, and express concerns. Patient was educated on treatments based on their presumed diagnosis as noted above. At this time we will discharge the patient with return precautions and follow-up recommendations. Verbal discharge instructions given a the bedside. Medication warnings reviewed. Patient is in agreement with this plan and has verbalized understanding of return precautions. After careful consideration I feel that that patient can be safely discharged from the emergency department, they were advised to followup with a primary care physician in 2-3 days. Dictation on this chart was performed using voice recognition software and may result in unintended grammatical, spelling, syntax or errors. 04/20/18 10:56 04/20/18 16:51 - Vital Signs Vital signs: Temp Pulse Resp BP Pulse Ox 98.0 F 76 16 95/56 L 100 04/20/18 12:35 04/20/18 12:35 04/20/18 12:35 04/20/18 12:35 04/20/18 12:35 - Laboratory Result Diagrams: 04/20/18 09:55 Laboratory results interpreted by me: 04/20/18 09:55 Ur Leukocyte Esterase LARGE H Discharge - Discharge Clinical Impression: Vaginitis and vulvovaginitis, Yeast infection of the vagina Condition: Good Disposition: HOME, SELF-CARE Instructions: Vaginal Yeast Infection ([facility]), Vaginitis ([facility]) Prescriptions: Clotrimazole 1% Topical [Lotrimin 1% Topical Soln 10 ml] 1 applic TP DAILY #50 ml Fluconazole [Diflucan] 100 mg PO ONCE PRN #1 tablet PRN Reason: Forms: Return to Work
[2018-04-20 11:04] LABS: T.VAGINALIS (WET MOUNT) NO TRICHOMONAS SEEN
[2018-04-20 11:05] LABS: RBCS (WET MOUNT) 3+ RBCS SEEN; WBCS (WET MOUNT) 1+ WBCS SEEN; YEAST (WET MOUNT) YEAST SEEN
[2018-04-20 12:19] LABS: CHLAM PCR NOT DETECTED (NOT DETECT); GON PCR NOT DETECTED (NOT DETECT)
[2018-04-20 12:27] LABS: APPEARANCE,URINE CLOUDY; BILIRUBIN,URINE NEGATIVE (NEGATIVE); COLOR,URINE YELLOW; GLUCOSE, URINE NEGATIVE (NEGATIVE); KETONES,URINE NEGATIVE (NEGATIVE); LEUKOCYTE ESTERASE,URINE LARGE (NEGATIVE); NITRITE,URINE NEGATIVE (NEGATIVE); PROTEIN,URINE NEGATIVE (NEGATIVE); UROBILINOGEN,URINE NEGATIVE mg/dL (<2.0)
[2018-04-20 12:36] VITALS: BP 95/56
== END 2018-04-20 12:35 | disposition home or self-care (01) ==
LOC: ER 09:30
DX: N76.0 Acute vaginitis (principal); B37.3 Candidiasis of vulva and vagina; R10.2 Pelvic and perineal pain; R10.30 Lower abdominal pain, unspecified; J45.909 Unspecified asthma, uncomplicated
CPT/HCPCS: 36415; 81001; 81025; 85025; 87210; 87491; 87591; 99283